=== PATIENT | male | born 1955 | race Hispanic/Latino ===

== ENCOUNTER → 2023-02-22 | Outpatient (CLI) | payer OTHER ==
[~2023-02-22] MED LIST: ARIP30TA8 PO; LEVO50TA11 PO; LISI2.5T13 PO; MELO-108 PO; METF-444 PO; MODA200T48 PO; MULT-965 PO; OLOP2.5D12 OU; OMEG1CAP6 PO; PRAV40TA3 PO; SERT100T PO; TRAM50TA4 PO; [UNRECOGNIZED DRUG - CODE] PO
== END | disposition home or self-care (01) ==
LOC: RAH 07:09
PROVIDERS: ATTEND Family Medicine
DX: M47.817 Spondylosis without myelopathy or radiculopathy, lumbosacral region (principal); M54.50 Low back pain, unspecified
CPT/HCPCS: 72100